=== PATIENT | female | born 1995 | race African-American/Black ===

== ENCOUNTER 2018-09-19 03:29 | Emergency (ER) | payer SELFPAY ==
[2018-09-19] MEDS ORDERED: Acetaminophen 500 MG TAB ONE (03:52)
--- NOTE | 2018-09-19 08:32 | RAD ---
LEFT ELBOW RADIOGRAPHS 4 VIEWS: DATE: 09/19/2018. PROVIDED CLINICAL HISTORY: Elbow pain status post injury. FINDINGS: On the frontal and oblique views, there is apparent cortical offset involving the radial neck that ma y reflect nondisplaced radial neck fracture. No additional potential fracture is identified. Alignm ent appears anatomic. Joint spaces appear preserved. No definite evidence for elbow joint capsular distention. IMPRESSION: Possible nondisplaced radial neck fracture. CODE T POS: DANICA
== END 2018-09-19 05:15 | disposition home or self-care (01) ==
LOC: ERS 03:29
DX: S52.122A Displaced fracture of head of left radius, initial encounter for closed fracture (principal); W19.XXXA Unspecified fall, initial encounter
CPT/HCPCS: 29105